=== PATIENT | male | born 1950 | race Caucasian/White ===

== ENCOUNTER → 2020-09-07 | Outpatient (CLI) | payer MEDICARE ==
[2019-08-16 09:04] VITALS: BP 140/88
[~2020-09-07] MED LIST: FINA5TAB4 PO; TERA5CAP3 PO
--- NOTE | 2020-09-07 17:06 | CARD ---
MR#: [id number] Date of Study: 09/07/2020 Ordering Physician: GUILHERME GOLDMAN, Referring Physician: GUILHERME GOLDMAN, Tech: Lisette Kang MICHAEL APPROVED REPORT EXAM: Two-dimensional and M-mode echocardiogram with Doppler and color Doppler. Other Information Quality : Good INDICATION Cardiac Disease: CAD 2D DIMENSIONS RVDd2.6 (2.9-3.5cm)Left Atrium(2D)3.5 (1.6-4.0cm) IVSd1.0 (0.7-1.1cm)Aortic Root(2D)3.1 (2.0-3.7cm) LVDd4.3 (3.9-5.9cm)LVOT Diameter2.1 (1.8-2.4cm) PWd1.1 (0.7-1.1cm)LVDs2.4 (2.5-4.0cm) FS (%) 30.0 %SV65.2 ml LVEF(%)60.0 (>50%) Aortic Valve AoV Peak Pedro.114.9cm/sAoV VTI21.9cm AO Peak GR.5.3mmHgLVOT Peak Pedro.107.1cm/s LVOT VTI 24.12cmAO Mean GR.3mmHg JOHNNIE (VMAX)3.66kk1JEO (VTI)3.81cm2 Mitral Valve MV E Plusvswa57.2cm/sMV DECEL FPOV525ww MV A Vheneylp86.2cm/sMV INA46dn E/A Ratio1.2MVA (PHT)3.95cm2 TDI E/Lateral E'12.3E/Medial E'13.1 Tricuspid Valve TR P. Cilgxlkk045ee/sRAP QLTJAPGH9kdTg TR Peak Gr.66mwImNTPC41nbKa Pulmonary Vein S1 Qialbojy35.2cm/sD2 Qveycbox11.7cm/s LEFT VENTRICLE The left ventricle is normal size. There is mild concentric left ventricular hypertrophy. The left ve ntricular systolic function is normal and the ejection fraction is within normal range. The Ejection Fraction is 55-60%. There is normal LV segmental wall motion. Transmitral Doppler flow pattern is Gra de I-abnormal relaxation pattern. RIGHT VENTRICLE The right ventricle is normal size. The right ventricular systolic function is normal. ATRIA The left atrium size is normal. The right atrium size is normal. The interatrial septum is intact wit h no evidence for an atrial septal defect or patent foramen ovale as noted on 2-D or Doppler imaging. AORTIC VALVE The aortic valve is calcified but opens well. Doppler and Color Flow revealed no significant aortic r egurgitation. There is no significant aortic valvular stenosis. MITRAL VALVE The mitral valve is calcified but opens well. There is no evidence of mitral valve prolapse. There is no mitral valve stenosis. Doppler and Color-flow revealed trace mitral regurgitation. TRICUSPID VALVE The tricuspid valve is normal in structure and function. Doppler and Color Flow revealed trace tricus pid regurgitation. The PA pressure was estimated at 33 mmHg. There is no tricuspid valve stenosis. PULMONIC VALVE The pulmonic valve is not well visualized. Doppler and Color Flow revealed no pulmonic valvular regur gitation. There is no pulmonic valvular stenosis. GREAT VESSELS The aortic root is normal in size. The ascending aorta is normal in size. The IVC is normal in size a nd collapses >50% with inspiration. PERICARDIAL EFFUSION There is no evidence of significant pericardial effusion. Critical Notification Critical Value: No <Conclusion> The left ventricle is normal size. The left ventricular systolic function is normal and the ejection fraction is within normal range. The Ejection Fraction is 55-60%. There is mild concentric left ventricular hypertrophy. Doppler and Color Flow revealed no significant aortic regurgitation. There is no significant aortic valvular stenosis. Doppler and Color-flow revealed trace mitral regurgitation. Doppler and Color Flow revealed trace tricuspid regurgitation. The PA pressure was estimated at 33 mmHg. Signed by : Quan De Leon MD Electronically Approved : 09/07/2020 17:06:09
--- NOTE | 2020-09-07 17:18 | RAD ---
MR#: [id number] Date of Study: 09/07/2020 Ordering Physician: GUILHERME GOLDMAN, Referring Physician: CARI BRAVO Tech: RT Gay (R) (N) APPROVED REPORT Test Type: Exercise Stress Nurse/Tech: Anita Chamorro R.N. Test Indications: CAD Cardiac History: cardiac stent 1 yr ago,htn, Medications: See Electronic Medical Record Medical History: See Electronic Medical Record Resting ECG: SR Resting Heart Rate: 72 bpm Resting Blood Pressure: 134/86mmHg Pretest Chest Pain: None Nurse/Tech Notes S1S2, lungs CTA Consent: The procedure was explained to the patient in lay terms. Informed consent was witnessed. Alvaro eout was entered into [employer]. History and Stress Test performed by MILANA Devlin, SANTOS (R) (N) Stress Symptoms fatigue, POST EXERCISE Reason for Termination: Reached target heart rate Target HR: Yes Max HR: 134 bpm 88% of Maximum Predicted HR: 152 bpm Exercise duration: 6:55 min:sec, 2 Stage Exercise capacity: 7.0METs Max Blood Pressure: 180/92mmHg Blood Pressure response to exercise: Normal blood pressure response during stress. Heart Rate response to exercise: wnl Chest Pain: No. Arrhythmia: No. INTERPRETATION Stress EKG Conclusion: The resting EKG showed a sinus rhythm with mild nonspecific ST-T wave changes. The stress EKG shows no significant changes from baseline. No EKG evidence of stress-induced ischemia. Imaging Protocol IMAGE PROTOCOL: Rest Tc-99m/stress Tc-99m 1 day Rest: Stress: Viability: Radiopharm.Tc99m PtcfjcdtiZg57j Sestamibi Ognr45uVf 32mCi Img Date 09/07/2020 09/07/2020 Inj-Img Sikd51ygp. 60min. Rest Admin Site:IV - Right AntecubitalAdministrator:MILANA Devlin, SANTOS (R)(N) Stress Admin Site: IV - Right AntecubitalAdministrator: MILANA Devlin ARRT (R)(N) STRESS DATA End Diast. Vol.89.0mlAv. Heart Rate82.0bpm End Syst. Vol.7.0mlCO Index BSA0.0L/min Myocardial Fneg642.0gEject. Vwmsiyma83.0% Stress Rates Pk. Fill Rate2.83EDV/secLVtime Pk. Fill 112.47msec Pk. Empty Rate4.95ESV/secLVtime Pk. Cjclv495.42msec 1/3 Pk. Fill1.84EDV/sec Stress Scores Regional WT0.00Summed WT5.00 Regional WM0.00Summed WM0.00 LV Perfusion The stress scans showed no significant defects. The rest scans showed no significant defects. Nuclear imaging shows no reversible ischemia or infarct. Wall Motion Left ventricular systolic function is normal with no regional wall motion abnormalities and an ejecti on fraction of greater than 70%. LV Perf. Quant 17 Seg. SSS0.00 17 Seg. SRS0.00 17 Seg. SDS0.00 Stress Defect Extent (% LAD)0.00Rest Defect Extent (% LAD)0.00Rev. Defect Extent (% LAD)0.00 Stress Defect Extent (% LCX) 0.00Rest Defect Extent (% LCX)0.00Rev. Defect Extent (% LCX)0.00 Stress Defect Extent (% RCA)0.00Rest Defect Extent (% RCA)0.00Rev. Defect Extent (% RCA)0.00 Stress Defect Extent (% ROGELIO)0.00Rest Defect Extent (% ROGELIO)0.00Rev. Defect Extent (% ROGELIO)0.00 Conclusion 1. Good exercise tolerance with the patient walking for 6 minutes and 55 seconds on a Randy protocol. 2. No reported chest pain with exertion. 3. No EKG evidence of stress-induced ischemia. 4. Nuclear imaging shows no reversible ischemia or infarct. 5. Normal left ventricular systolic function with ejection fraction of greater than 70%. 6. Low risk treadmill nuclear stress test. Signed by : Quan De Leon MD Electronically Approved : 09/07/2020 17:18:42
== END ==
LOC: ECHO 07:36
PROVIDERS: ATTEND Internal Medicine Cardiovascular Disease
DX: I08.0 Rheumatic disorders of both mitral and aortic valves (principal); I25.10 Atherosclerotic heart disease of native coronary artery without angina pectoris
CPT/HCPCS: 78452; 93017; 93306; A9500

== ENCOUNTER → 2021-10-21 | Outpatient (CLI) | payer MEDICARE ==
[2019-08-16 09:04] VITALS: BP 140/88
[2021-10-21 09:26] LABS: CHOLESTEROL/HDL RATIO 2.4
--- NOTE | 2021-10-21 17:41 | CARD ---
MR#: [id number] Date of Study: 10/21/2021 Ordering Physician: GUILHERME GOLDMAN, Referring Physician: GUILHERME GOLDMAN, Tech: RITU STEVENSON RDCS,T APPROVED REPORT EXAM: Two-dimensional and M-mode echocardiogram with Doppler and color Doppler. Other Information Quality : GoodHR: 74bpm Rhythm : NSR INDICATION Cardiac Disease: CAD GA 2020/Stent x1 2D DIMENSIONS RVDd3.6 (2.9-3.5cm)Left Atrium(2D)3.1 (1.6-4.0cm) IVSd1.3 (0.7-1.1cm)Aortic Root(2D)3.4 (2.0-3.7cm) LVDd4.8 (3.9-5.9cm)LVOT Diameter2.1 (1.8-2.4cm) PWd1.3 (0.7-1.1cm)LVDs3.7 (2.5-4.0cm) FS (%) 24.0 %SV51.7 ml Aortic Valve AoV Peak Pedro.143.7cm/sAoV VTI31.2cm AO Peak GR.8.3mmHgLVOT Peak Pedro.118.2cm/s AO Mean GR.5mmHgAVA (VMAX)2.75cm2 Mitral Valve MV E Eyrlveyb19.4cm/sMV DECEL QHVL887xh MV A Qdotqsuj51.9cm/sE/A Ratio1.1 Pulmonary Valve PV Peak Efzjxjgb20.1cm/s Tricuspid Valve TR P. Ubnuyyyf476li/sTR Peak Gr.15mmHg Pulmonary Vein S1 Rplokkfp87.0cm/sD2 Hofkljyu17.1cm/s PVa aooexxwt25xnaw LEFT VENTRICLE The left ventricle is normal size. There is borderline concentric left ventricular hypertrophy. Left ventricular systolic function is normal. The left ventricular ejection fraction is within the normal range. The LV Ejection Fraction is 50-55%. No regional wall motion abnormalities noted. The left vent ricular diastolic function is normal. No left ventricle thrombus noted on this study. There is no brady tricular septal defect visualized. There is no left ventricular aneurysm. There is no mass noted in t he left ventricle. RIGHT VENTRICLE The right ventricle is normal size. There is normal right ventricular wall thickness. The right ventr icular systolic function is normal. ATRIA The left atrium size is normal. The right atrium size is normal. The interatrial septum is intact wit h no evidence for an atrial septal defect or patent foramen ovale as noted on 2-D or Doppler imaging. AORTIC VALVE The aortic valve is normal in structure and function. Doppler and Color Flow revealed no significant aortic regurgitation. There is no significant aortic valvular stenosis. There is no aortic valvular v egetation. MITRAL VALVE The mitral valve is normal in structure and function. There is no evidence of mitral valve prolapse. There is no mitral valve stenosis. Doppler and Color-flow revealed trace mitral regurgitation. TRICUSPID VALVE The tricuspid valve is normal in structure and function. Doppler and Color Flow revealed trace tricus pid regurgitation. The pulmonary artery systolic pressure is estimated at less than 30 mmHg. There is no tricuspid valve prolapse or vegetation. There is no tricuspid valve stenosis. PULMONIC VALVE The pulmonary valve is normal in structure and function. There is no pulmonic valvular regurgitation. There is no pulmonic valvular stenosis. GREAT VESSELS The aortic root is normal in size. The ascending aorta is normal in size. The pulmonary artery is nor mal. The IVC is normal in size and collapses >50% with inspiration. PERICARDIAL EFFUSION There is no pleural effusion. The pericardium appears normal. Critical Notification Critical Value: No <Conclusion> The left ventricle is normal size. Left ventricular systolic function is normal. The LV Ejection Fraction is 50-55%. No regional wall motion abnormalities noted. There is borderline concentric left ventricular hypertrophy. Doppler and Color Flow revealed no significant aortic regurgitation. There is no significant aortic valvular stenosis. Doppler and Color-flow revealed trace mitral regurgitation. Doppler and Color Flow revealed trace tricuspid regurgitation. The pulmonary artery systolic pressure is estimated at less than 30 mmHg. Signed by : Quan De Leon MD Electronically Approved : 10/21/2021 17:40:51
== END ==
LOC: ECHO 08:35
PROVIDERS: ATTEND Internal Medicine Cardiovascular Disease
DX: I25.10 Atherosclerotic heart disease of native coronary artery without angina pectoris (principal); E78.5 Hyperlipidemia, unspecified
CPT/HCPCS: 36415; 80061; 93306; C8929